=== PATIENT | female | born 1995 | race Asian ===

== ENCOUNTER 2017-12-22 13:24 | Emergency (ER) | payer BC, OTHER ==
[2017-12-22 13:55] VITALS: BP 113/65; PULSE 67; TEMP 98.4; BMI 27.4
[2017-12-22 17:33] LABS: BASO % 0.5 % (0-2.0); EOS % 1.8 % (0-4.5); HEMATOCRIT 40.9 % (32.4-45.2); HEMOGLOBIN 13.4 GM/dL (10.7-15.3); LYMPH % 31.2 % (8-40); MCH 28.6 pg (25.7-33.7); MCHC 32.8 g/dl (32.0-36.0); MEAN CELL VOLUME 87.4 fl (80-96); MEAN PLT VOLUME 8.9 fl (7.5-11.1); MONO % 6.9 % (3.8-10.2); NEUT % 59.6 % (42.8-82.8); PLATELET COUNT 266 K/MM3 (134-434); RBC 4.68 M/mm3 (3.60-5.2); RDW 12.2 % (11.6-15.6); WHITE BLOOD COUNT 13.8 K/mm3 (4.0-10.0)
[2017-12-22 17:34] LABS: URINE APPEARANCE CLEAR; URINE BILIRUBIN NEGATIVE (NEGATIVE); URINE BLOOD NEGATIVE (NEGATIVE); URINE COLOR LTYELLOW; URINE GLUCOSE (UA) NEGATIVE (NEGATIVE); URINE KETONE NEGATIVE (NEGATIVE); URINE LEUK ESTERASE NEGATIVE (NEGATIVE); URINE NITRITE NEGATIVE (NEGATIVE); URINE PROTEIN NEGATIVE (NEGATIVE); URINE UROBILINOGEN NEGATIVE mg/dL (0.2-1.0)
--- NOTE | 2017-12-22 17:58 | PDOC ---
History of Present Illness - General Chief Complaint: Pain Stated Complaint: RT SIDE PAIN Time Seen by Provider: 12/22/17 15:42 History Source: Patient Exam Limitations: No Limitations - History of Present Illness Initial Comments: 12/22/17 17:52 The patient is a 22F with no PMH who presents to the ER with complaints of RUQ pain. The patient states that she's had this constant RUQ pressure for 3 weeks. It had a gradual onset, is worse with certain movements, and nothing has helped it feel better. The patient has tried taking naproxen with no relief. The pain does not change with food. LMP is 4 days ago. She denies any vaginal discharge, vaginal bleeding, hematuria, hematochezia, diarrhea, constipation, fever, chills , nausea, and vomiting. The patient states that she has been worked up by her PCP with a CXR which was negative. She was scheduled for an ultrasound for this (4 days from today) but said she could not tolerate the pain. Past History - Past Medical History Allergies/Adverse Reactions: Allergies Allergy/AdvReac Type Severity Reaction Status Date / Time No Known Allergies Allergy Unverified 12/22/17 13:54 Home Medications: Ambulatory Orders NK [No Known Home Medication] 12/22/17 COPD: No - Suicide/Smoking/Psychosocial Hx Smoking History: Never smoked Have you smoked in the past 12 months: No Information on smoking cessation initiated: No Hx Alcohol Use: No Drug/Substance Use Hx: No Substance Use Type: None Review of Systems - Review of Systems Able to Perform ROS?: Yes Comments:: 12/22/17 17:59 GENERAL/CONSTITUTIONAL: No fever or chills. No weakness. HEAD, EYES, EARS, NOSE AND THROAT: No change in vision. No ear pain or discharge. No sore throat. GASTROINTESTINAL: Positive for abdominal pain, RUQ. No nausea, vomiting, diarrhea, or constipation. GENITOURINARY: No dysuria, frequency, hematuria, or change in urination. CARDIOVASCULAR: No chest pain, palpitations, or lightheadedness. RESPIRATORY: No cough, wheezing, shortness of breath, or hemoptysis. MUSCULOSKELETAL: No joint or muscle swelling or pain. No neck or back pain. SKIN: No rash or lesions. NEUROLOGIC: No headache, numbness, tingling, weakness, loss of consciousness, or change in strength/sensation. ENDOCRINE: No increased thirst. No abnormal weight change. HEMATOLOGIC/LYMPHATIC: No anemia, easy bleeding, or history of blood clots. ALLERGIC/IMMUNOLOGIC: No hives or skin allergy. Is the patient limited Upper Sorbian proficient: No *Physical Exam - Vital Signs Last Vital Signs Temp Pulse Resp BP Pulse Ox 98.4 F 67 18 113/65 100 12/22/17 13:51 12/22/17 13:51 12/22/17 13:51 12/22/17 13:51 12/22/17 13:51 - Physical Exam Comments: 12/22/17 18:00 GENERAL: Well developed, well nourished. Awake and alert. No acute distress. HEENT: Normocephalic, atraumatic. Hearing grossly normal. Moist mucous membranes. PERRLA, EOMI. No conjunctival pallor. NECK: Supple. Full ROM. No JVD. CARDIOVASCULAR: Regular rate and rhythm. No murmurs, rubs, or gallops. PULMONARY: No evidence of respiratory distress. Lungs clear to auscultation bilaterally. No wheezing, rales or rhonchi. ABDOMINAL: Tenderness to deep palpation over RLQ. Negative duncan's sign. No rebound or guarding. GENITOURINARY: No CVA tenderness bilaterally. PELVIC: No CMT. No adnexal tenderness or masses palpated. No discharge or obvious external abnormalities. MUSCULOSKELETAL: Normal range of motion at all joints. No bony deformities or tenderness. EXTREMITIES: No cyanosis. No clubbing. No edema. No calf tenderness. SKIN: Warm and dry. Normal capillary refill. No rashes. No jaundice. NEUROLOGICAL: Alert, awake, appropriate. Cranial nerves 2-12 intact. Normal speech. Gait is normal without ataxia. PSYCHIATRIC: Cooperative. Good eye contact. Appropriate mood and affect. ED Treatment Course - LABORATORY CBC & Chemistry Diagram: 12/22/17 17:06 12/22/17 17:06 - ADDITIONAL ORDERS Additional order review: Laboratory Results 12/22/17 17:00 Urine Color Ltyellow Urine Appearance Clear Urine pH 5.0 Ur Specific [place] 1.024 Urine Protein Negative Urine Glucose (UA) Negative Urine Ketones Negative Urine Blood Negative Urine Nitrite Negative Urine Bilirubin Negative Urine Urobilinogen Negative Ur Leukocyte Esterase Negative 12/22/17 17:06 RBC 4.68 MCV 87.4 MCHC 32.8 RDW 12.2 MPV 8.9 D Neutrophils % 59.6 Lymphocytes % 31.2 Monocytes % 6.9 Eosinophils % 1.8 Basophils % 0.5 - RADIOLOGY Radiology Studies Ordered: Category Date Time Status ABDOMEN US -LIMITED [US] Stat Ultrasound 12/22/17 16:30 Ordered Medical Decision Making - Medical Decision Making 12/22/17 18:14 The patient is a 22F with no PMH who is presenting with 3 weeks of RUQ positional abdominal pain. I am concerned for a hepatobiliary pathology. Sending labs to r/o ectopic. There is a high likelihood for a musculoskeletal pathology. Pending labs and imaging. 12/22/17 18:56 U/S negative. Pending serum . 12/22/17 19:10 Labs WNL except for white count of 13.8. The patient is comfortable, not ill appearing, and will have f/u with PCP. I am comfortable with sending her home as she has had negative UA, negative U/S of RUQ. Will inform pt and d/c home. *DC/Admit/Observation/Transfer Diagnosis at time of Disposition: Abdominal pain Qualifiers: Abdominal location: right upper quadrant Qualified Code(s): R10.11 - Right upper quadrant pain - Discharge Dispostion Disposition: HOME Condition at time of disposition: Stable Admit: No - Referrals Referrals: Parmjit Landaverde MD [Primary Care Provider] - - Patient Instructions Printed Discharge Instructions: DI for Abdominal Pain-Adult Additional Instructions: Please return to the ER if symptoms persist, worsen, or new symptoms arise. Please follow up with your primary care physician in 2-3 days. Please return to the ER if you have any signs or symptoms of chest pain, shortness of breath, uncontrollable fever, chills, nausea, vomiting, numbness, tingling, or weakness in any part of your body, changes in vision, or slurred speech. - Post Discharge Activity
[2017-12-22 18:24] LABS: ALK PHOS 74 U/L (45-117); ANION GAP 7 (8-16); BILIRUBIN,TOTAL 0.3 mg/dL (0.2-1.0); BLOOD UREA NITROGEN 15 mg/dL (7-18); CALCIUM 8.6 mg/dL (8.5-10.1); CHLORIDE 104 mmol/L (98-107); CO2 26 mmol/L (21-32); CREATININE 0.5 mg/dL (0.55-1.02); GLUCOSE,RANDOM 81 mg/dL (74-106); POTASSIUM 3.6 mmol/L (3.5-5.1); SGOT/AST 12 U/L (15-37); SGPT/ALT 32 U/L (12-78); SODIUM 137 mmol/L (136-145); TOT PROT 7.5 g/dl (6.4-8.2)
== END 2017-12-22 19:36 | disposition home or self-care (01) ==
LOC: JER 13:24
DX: R10.11 Right upper quadrant pain (principal)
CPT/HCPCS: 36415; 76705-TC; 80053; 81003; 84703; 85025; 87491; 87591; 99282-25

== ENCOUNTER 2020-02-03 15:17 | Emergency (ER) | payer OTHER ==
[2020-02-03 15:24] VITALS: BP 127/78; PULSE 101; TEMP 97.8; BMI 26.0
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
[2020-02-03] MEDS ORDERED: KETOROLAC TROMETHAMINE 60 MG/2 ML VIAL IM ONE (16:12)
[2020-02-03] MEDS ORDERED: KETOROLAC TROMETHAMINE 60 MG/2 ML VIAL ONE (16:14)
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
[2020-02-03 16:19] LABS: URINE APPEARANCE CLEAR; URINE BILIRUBIN NEGATIVE (NEGATIVE); URINE COLOR YELLOW; URINE GLUCOSE (UA) 3+ (NEGATIVE); URINE KETONE NEGATIVE (NEGATIVE); URINE LEUK ESTERASE NEGATIVE (NEGATIVE); URINE NITRITE NEGATIVE (NEGATIVE); URINE PROTEIN NEGATIVE (NEGATIVE); URINE UROBILINOGEN 0.2 mg/dL (0.2-1.0)
== END 2020-02-03 18:12 | disposition home or self-care (01) ==
LOC: JERFT 15:17
PROC: 3E0233Z Introduction of Anti-inflammatory into Muscle, Percutaneous Approach (ICD-10-PCS; principal; 2020-02-03)
DX: S20.222A Contusion of left back wall of thorax, initial encounter (principal); R73.09 Other abnormal glucose; W18.39XA Other fall on same level, initial encounter; Y93.89 Activity, other specified; Y92.89 Other specified places as the place of occurrence of the external cause
CPT/HCPCS: 71111-TC-FY; 81003; 82962; 84703; 99284-25

== ENCOUNTER 2023-01-20 19:26 | Emergency (ER) | payer OTHER ==
[2023-01-20 19:37] VITALS: BP 124/37; PULSE 81; RESP 16; TEMP 98.3; BMI 24.0
[2023-01-20] MEDS ORDERED: ALBUTEROL SO4 2.5/IPRATROPIUM 0.5 INH SOL 3 ML VIAL.NEB. NEB ONE (20:48)
[2023-01-20] MEDS ORDERED: ALBUTEROL SO4 0.083% IH SOL 2.5 MG/3 ML VIAL.NEB. NEB ONE (21:26)
[2023-01-20] MEDS ORDERED: DEXAMETHASONE 4 MG TABLET (FP) PO ONE (21:40)
[2023-01-20] MEDS ORDERED: AZITHROMYCIN 250 MG TABLET PO ONE (21:41)
[2023-01-20] MEDS ORDERED: AZITHROMYCIN 250 MG TABLET ONE (21:45)
[2023-01-20] MEDS ORDERED: DEXAMETHASONE 4 MG TABLET (FP) ONE (21:46)
== END 2023-01-20 22:07 | disposition home or self-care (01) ==
LOC: JER 19:26 → JERFT 19:26 → JER 22:07
PROC: 3E0F7GC Introduction of Other Therapeutic Substance into Respiratory Tract, Via Natural or Artificial Opening (ICD-10-PCS; principal; 2023-01-20)
DX: R05.1 Acute cough (principal)
CPT/HCPCS: 0241U-QW; 71045-TC-FY; 99284-25

== ENCOUNTER 2023-10-07 10:57 | Emergency (ER) | payer BC ==
[2023-10-07 11:41] VITALS: BP 130/61; PULSE 89; RESP 19; TEMP 97.9; BMI 25.2
== END 2023-10-07 14:45 | disposition home or self-care (01) ==
LOC: JER 10:57 → JERFT 10:57
DX: S82.831A Other fracture of upper and lower end of right fibula, initial encounter for closed fracture (principal); W19.XXXA Unspecified fall, initial encounter
CPT/HCPCS: 73610-TC-RT-FY; 73630-TC-RT-FY; 99283-25